=== PATIENT | male | born 1970 | race Caucasian/White ===

== ENCOUNTER 2020-12-02 07:50 | Emergency (ER) | payer OTHER, SELFPAY ==
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
--- NOTE | ~2020-12-02 | CT_ITS ---
EXAMINATION: CT brain wo con INDICATION: Dizziness COMPARISON: None TECHNIQUE: Standard unenhanced head CT. The dose-length product (DLP) was 605.33 mGy-cm. The mA was a djusted according to patient size. Iterative reconstruction technique was employed. FINDINGS: There is no intracranial hemorrhage, acute infarction, or abnormal mass lesion. The ventric les are normal. There is no abnormal mass effect or midline shift. The duckworth-white matter differentiat ion is normal. The basal cisterns are patent. The orbits are normal. The paranasal sinuses, mastoids and calvarium are normal. IMPRESSION: 1. No acute intracranial abnormality. Reviewed, dictated and finalized at location A.
[2020-12-02 07:51] VITALS: BP 227/144; PULSE 106; RESP 19; O2SAT 99
--- NOTE | 2020-12-02 07:56 | ECG_ITS ---
Measurements Intervals [place] Rate: 102 P: 18 ID: [id number] QRS: -8 QRSD: 92 T: 17 QT: 323 QTc: 422 Interpretive Statements SINUS TACHYCARDIA BORDERLINE ECG Electronically Signed On 12-02-2020 8:15:35 CDT by Preston Pratt D.O.
[2020-12-02 08:35] LABS: Basophils Absolute Auto 0.1 K/mm3 (0.0-0.1); Basophils Percent Auto 0.9 % (0.2-1.2); Eosinophils Absolute Auto 0.1 K/mm3 (0-0.3); Eosinophils Percent Auto 1.7 % (0-4.4); Hematocrit 44.2 % (42.0-52.0); Immature Granulocyte Absolute 0.04 K/mm3 (0.00-0.031); Immature Granulocyte Percent A 0.7 % (0-0.5); Lymphocytes Absolute Auto 1.39 K/mm3 (0.9-3.2); Lymphocytes Percent Auto 24.2 % (18.3-44.2); Mean Corpuscular HGB Conc 33.9 g/dl (32-36); Mean Corpuscular Hemoglobin 26.7 pg (26-34); Mean Corpuscular Volume 78.8 fl (80-100); Mean Platelet Volume 9.2 fl (7.4-10.4); Monocytes Absolute Auto 0.5 K/mm3 (0.1-0.6); Monocytes Percent Auto 8.4 % (2.6-8.5); Neutrophils Absolute Auto 3.7 K/mm3 (1.3-6.7); Neutrophils Percent Auto 64.1 % (45.5-73.1); Platelet Count Result 273 k/mm3 (150-375); Red Blood Count 5.61 M/mm3 (4.6-6.20); Red Cell Distribution Width 13.8 % (11.5-14.5); White Blood Count 5.7 K/mm3 (4.5-10.0)
--- NOTE | 2020-12-02 08:36 | ED.DIZZY ---
HPI - Dizziness General Chief Complaint: Dizziness Stated Complaint: DIZZY Time Seen by Provider: 12/02/20 07:57 Source: patient and RN notes reviewed Mode of arrival: ambulatory Limitations: no limitations History of Present Illness HPI Narrative: 50 years old white male presented to the ED with dizziness, lightheadedness started last night lasted for few minutes and then resolved. Patient noticed that when he stood up suddenly. This morning the same his pain was back again came after finishing his shower and during driving. Currently feeling a little lightheadedness. Patient denies any focal neuro deficit or having similar symptoms. Patient does not take medicine at home, last time was seen by a physician over 10 years ago, blood in stool, chew tobacco, drinks occasionally denies drug use. Currently patient denies any fever, chills, nausea, vomiting, chest pain, shortness of breath, headache or back pain. Related Data Allergies Allergy/AdvReac Type Severity Reaction Status Date / Time doxycycline AdvReac Unknown Nausea Verified 12/02/20 08:06 Review of Systems Review of Systems: Narrative: CONSTITUTIONAL: Denies fever, chills, or sweats. EYES: Denies visual changes, redness, or discharge. ENT: Denies rhinorrhea, congestion, sore throat, or otalgia. CARDIOVASCULAR: Denies chest pain, palpitations, or edema. RESPIRATORY: Denies cough or dyspnea. GASTROINTESTINAL: Denies abdominal pain, nausea, vomiting, or diarrhea. GENITOURINARY: Denies dysuria or hematuria. SKIN: Denies rash or itching. MUSCULOSKELETAL: Denies back pain, joint pain, or myalgia. NEUROLOGIC: Denies headache, numbness, or weakness. PSYCHIATRIC: Denies anxiety or depression. Exam Narrative: Exam Narrative: General appearance: Well-developed, well-nourished. at the bedside Head: Normocephalic, nontraumatic Eyes: Clear conjunctiva ENT: Oropharynx normal, ears normal, nose normal Neck: Supple, nontender Chest and respiratory: Airway patent, no respiratory distress, no accessory muscle use Heart: Regular rate/rhythm Abdomen: Soft, nontender, no organomegaly, quiet bowel sounds Vascular: Normal peripheral pulses, normal capillary refill. Musculoskeletal: Normal range of motion, nontender back Neurologic: Alert and oriented ?3, FIN[employer] is normal as tested, no gross motor deficit Course Course Emergency Course: Stable Vital Signs Vital signs: Vital Signs Pulse Rate 106 H 12/02/20 07:51 Respiratory Rate 19 12/02/20 07:51 Blood Pressure 227/144 H 12/02/20 07:51 Pulse Oximetry 99 12/02/20 07:51 Pulse Rate 88 12/02/20 09:34 Respiratory Rate 21 H 12/02/20 09:34 Blood Pressure 174/104 H 12/02/20 09:34 Pulse Oximetry 98 12/02/20 09:34 MDM - Dizziness MDM Narrative Medical decision making narrative: Patient presents with dizziness and lightheadedness, blood pressure on arrival to the emergency room 227/144, when I went see the patient in the room was 195/116. Last time was seen by physician over 10 years ago. Hypertension is my concern. Labs, CT head, chest x-ray and EKG ordered. Further plan to follow Differential Diagnosis Differential diagnosis: Likely orthostatic hypotension, cerebrovascular accident and other (Hypertension) Lab Data Result diagrams: 12/02/20 08:19 12/02/20 08:19 Labs: Lab Results 12/02/20 12/02/20 12/02/20 Range/Units 08:19 08:19 08:19 WBC 5.7 (4.5-10.0) K/mm3 RBC 5.61 (4.6-6.20) M/mm3 Hgb 15.0 (14.0-18.0) g/dL Hct 44.2 (42.0-52.0) % MCV 78.8 L (80-100) fl MCH 26.7 (26-34) pg MCHC 33.9 (32-36) g/dl RDW 13.8 (11.5-14.5) % Plt Count 273 (150-375) k/mm
[2020-12-02 08:47] LABS: Alanine Aminotransferase 18 U/L (4-50); Albumin Level 4.7 g/dL (3.5-5.1); Alkaline Phosphatase 116 U/L (38-126); Anion Gap 9 mmol/L (8-16); Aspartate Amino Transferase 22 U/L (17-59); Bilirubin,Total 0.8 mg/dL (0.2-1.3); Blood Urea Nitrogen 7 mg/dL (9-20); Calcium 9.4 mg/dL (8.4-10.2); Carbon Dioxide 27 mmol/L (22-30); Chloride 105 mmol/L (98-107); Estimated CRCL calculation 68 ml/min; Estimated Glomerular Filt Rate > 60; Glucose 108 mg/dL (75-110); Potassium 4.1 mmol/L (3.4-5.0); Sodium 141 mmol/L (137-145)
[2020-12-02] MEDS: LABETALOL HCL INJ 100 MG/20 ML VIAL 20 MG IV PUSH ×2 (08:49→09:40)
[2020-12-02 08:52] LABS: Amphetamine Screen Urine Negative (Negative); Barbiturate Screen Urine Negative (Negative); Benzodiazepines Screen Urine Negative (Negative); Cannabinoid Screen Urine Negative (Negative); Cocaine Screen Urine Negative (Negative); Methadone Screen Urine Negative (Negative); Opiate Screen Urine Negative (Negative); Phencyclidine Screen Urine Negative (Negative)
[2020-12-02 08:53] VITALS: BP 208/118; PULSE 92
[2020-12-02 08:54] VITALS: BP 196/104; PULSE 98
[2020-12-02 08:56] VITALS: BP 181/120; PULSE 88
[2020-12-02 08:59] LABS: Troponin I < 0.012 ng/mL (0.000-0.034)
[2020-12-02 09:04] LABS: Add Urine Microscopic? YES; Appearance Urine Clear (Clear); Bilirubin Urine Negative (Negative); Blood Urine 2+ (Negative); Color Urine Yellow (Yellow); Glucose Urine UA Negative (Negative); Ketones Urine Negative (Negative); Leukocyte Esterase Ur Negative LEU/UL (Negative); Mucus Urine Rare /lpf; Nitrate Urine Negative (Negative); Protein Urine Negative (Negative); Specific Grav Ur 1.013 (1.001-1.035); Urobilinogen Urine Negative mg/dL (<2.0); WBC Urine 0-3 /hpf
[2020-12-02 09:34] VITALS: BP 174/104; PULSE 88; RESP 21; O2SAT 98
[2020-12-02 10:28] VITALS: BP 173/101; PULSE 92; RESP 17; O2SAT 98
== END 2020-12-02 10:29 | disposition home or self-care (01) ==
PROVIDERS: Emergency Provider Emergency Medicine; PCP Internal Medicine
DX: R42 Dizziness and giddiness (principal); I10 Essential (primary) hypertension; R00.0 Tachycardia, unspecified; R91.8 Other nonspecific abnormal finding of lung field
CPT/HCPCS: 36415; 70450; 71045; 80053; 80307; 81001; 84484; 85025; 93005; 96374; 96376; 99284